=== PATIENT | female | born 1980 | race Caucasian/White ===

== ENCOUNTER 2018-06-24 09:09 | Day surgery (SDC) | payer OTHER ==
[2018-06-24] MEDS ORDERED: LR 1,000 ML IV ONE (09:16)
[2018-06-24] MEDS ORDERED: PROPOFOL 200 MG/20 ML VIAL ONE (10:51)
[2018-06-24] MEDS ORDERED: fentaNYL 100 MCG/2 ML INJ ONE ×2 (10:51→12:14)
[2018-06-24] MEDS ORDERED: LIDOCAINE 2% 5 ML SDV ONE (10:52)
[2018-06-24] MEDS ORDERED: MIDAZOLAM 2 MG/2 ML VIAL IVP ONE (11:30)
--- NOTE | 2018-06-24 11:31 | PDANEPAE ---
ANE History of Present Illness hysteroscopy ANE Past Medical History - Cardiovascular History Hx Hypertension: No Hx Arrhythmias: No Hx Chest Pain: No Hx Coronary Artery / Peripheral Vascular Disease: No Hx CHF / Valvular Disease: No Hx Palpitations: Yes - Pulmonary History Hx COPD: No Hx Asthma/Reactive Airway Disease: No Hx Recent Upper Respiratory Infection: No Hx Oxygen in Use at Home: No Hx Sleep Apnea: No Sleep Apnea Screening Result - Last Documented: Negative - Neurologic History Hx Cerebrovascular Accident: No Hx Seizures: No Hx Dementia: No - Endocrine History Hx Diabetes: No - Renal History Hx Renal Disorders: No - Liver History Hx Hepatic Disorders: No - Neurological & Psychiatric Hx Hx Neurological and Psychiatric Disorders: Yes Neurological / Psychiatric History Comment: situational anxiety - Cancer History Hx Cancer: No - Congenital Disorder History Hx Congenital Disorders: No - GI History Hx Gastrointestinal Disorders: Yes Gastrointestinal History Comment: ulcerative colitis - Other Health History Other Health History: endometiosis. increased bleeding with colitis - Chronic Pain History Chronic Pain: No - Surgical History Prior Surgeries: wisdom teeth removal ANE Review of Systems Review of Systems: - Exercise capacity METS (RN): 4 METS ANE Patient History - Allergies Allergies/Adverse Reactions: No Known Allergies Allergy (Unverified 06/13/18 14:59) - Home Medications Home medications: home medication list seen and reviewed Home Medications: NK [No Known Home Meds] 06/13/18 [Last Taken Unknown] - NPO status NPO Since - Liquids (Date): 06/24/18 NPO Since - Liquids (Time): 07:00 NPO Since - Solids (Date): 06/23/18 NPO Since - Solids (Time): 20:00 - Anes Hx Anes Hx: no prior problems - Smoking Hx Smoking Status: Never smoked - Family Anes Hx Family Hx Anesthesia Complications: none ANE Labs/Vital Signs - Vital Signs Blood Pressure: 108/72 Heart Rate: 66 Respiratory Rate: 16 O2 Sat (%): 99 Height: 162.56 cm Weight: 58.967 kg ANE Physical Exam - Airway Neck exam: FROM Mallampati Score: Class 1 Mouth exam: normal dental/mouth exam - Pulmonary Pulmonary: no respiratory distress - Cardiovascular Cardiovascular: regular rate and rhythym - ASA Status ASA Status: II ANE Anesthesia Plan Anesthesia Plan: GA w LMA
--- NOTE | 2018-06-24 11:36 | POSTANESTH ---
Post Anesthetic Evaluation Cardiovascular Status: Normal, Stable Respiratory Status: Normal, Stable Level of Consciousness/Mental Status: Can Participate in Eval, Mildly Sleepy, Arousable Pain Control: Adequate, Prn Tx Ordered Nausea/Vomiting Control: Adequate, Prn Tx Ordered Complications Possibly Related to Anesthesia: None Noted
[2018-06-24] MEDS ORDERED: ONDANSETRON 4 MG/2 ML VIAL ONE (11:42)
[2018-06-24] MEDS ORDERED: DEXAMETHASONE 4 MG/ML VIAL ONE (11:42)
[2018-06-24] MEDS ORDERED: KETOROLAC 30 MG/1 ML SDV ONE (11:42)
--- NOTE | 2018-06-24 11:45 | PDGENHP ---
History and Physical - Chief Complaint postcoital bleeding and suspected endometrial polyp - History of Present Illness 37 yo with postcoital bleeding over the past 6 months and endometrial polyp found on ultrasound, approximately 1cm. Options discussed and agreed to proceed with hysteroscopy with polypectomy and endometrial sampling. History Information - Allergies/Home Medication List Allergies/Adverse Reactions: No Known Allergies Allergy (Unverified 06/13/18 14:59) Home Medications: NK [No Known Home Meds] 06/13/18 [Last Taken Unknown] I have personally reviewed and updated: family history, medical history, social history, surgical history Past Medical History: ulcerative colitis - diet managed - Surgical History Additional surgical history: none - Family History Positive for: non-pertinent - Social History Smoking Status: Never smoked Alcohol Use: Occasionally Drug Use: None Review of Systems Review of Systems: ROS: 10pt was reviewed & negative except for what was stated in HPI & below Physical Exam Physical Exam: Temp Pulse Resp BP Pulse Ox 36.8 C 66 16 108/72 99 06/24/18 09:33 06/24/18 11:31 06/24/18 11:31 06/24/18 11:31 06/24/18 11:31 Constitutional: no apparent distress, appears nourished Eyes: PERRL, anicteric sclera, EOMI Ears, Nose, Mouth, Throat: moist mucous membranes, hearing normal, ears appear normal Cardiovascular: regular rate and rhythym Respiratory: no respiratory distress, no rales or rhonchi Gastrointestinal: normoactive bowel sounds, soft, non-tender abdomen, no palpable masses Genitourinary: no bladder fullness Skin: normal color Musculoskeletal: full muscle strength Neurologic: AAOx3 Psychiatric: interacting appropriately Lymph, Heme, Immunologic: no cervical LAD Lab Data & Imaging Review EKG Interpretation: Positive for: normal sinsus rhythm Assessment & Plan Assessment: 37 yo with postcoital bleeding and suspected endometrial polyp. Written informed consent obtained. Will proceed with hysteroscopy, polypectomy and endometrial sampling. Mayr Gaytan MD, [facility]
[2018-06-24] MEDS ORDERED: ePHEDrine SULFATE 25 MG/5 ML SYR ONE (12:03)
[2018-06-24] MEDS ORDERED: HYDROmorphONE/DILAUDID 2 MG/ML INJ IVP PRN (12:24)
[2018-06-24] MEDS ORDERED: fentaNYL 100 MCG/2 ML INJ IVP PRN (12:24)
[2018-06-24] MEDS ORDERED: ACETAMINOPHEN 500 MG TAB PO PRN (12:24)
[2018-06-24] MEDS ORDERED: oxyCODONE IR 5 MG TAB PO PRN (12:24)
[2018-06-24] MEDS ORDERED: LR 500 ML IV PRN (12:24)
[2018-06-24] MEDS ORDERED: HYDROCODONE/APAP 5/325 TAB PO PRN (12:24)
[2018-06-24] MEDS ORDERED: ONDANSETRON 4 MG/2 ML VIAL IVP PRN (12:24)
[2018-06-24] MEDS ORDERED: NALOXONE HCL 0.4 MG/ML INJ IVP PRN (12:24)
[2018-06-24] MEDS ORDERED: ALBUTEROL 3 ML DEYVIAL IH PRN (12:24)
[2018-06-24] MEDS ORDERED: PROMETHAZINE HCL 25 MG/ML INJ IVP PRN (12:24)
[2018-06-24] MEDS ORDERED: METOCLOPRAMIDE 10 MG/2 ML VIAL IVP PRN (12:24)
--- NOTE | 2018-06-24 12:45 | POSTOPPROG ---
Post Op Note Date of Operation: 06/24/18 Surgeon: Mary Gaytan Anesthesiologist: Ben Haines Anesthesia: GET(General Endotracheal) Pre-op Diagnosis: postcoital bleeding, suspected endometrial polyp Post-op Diagnosis: same Indication: postcoital bleeding and suspected endometrial polyp Procedure: hysteroscopy, polypectomy, endometrial curetting Findings: uterus sounded to 7cm, anterior wall polyp Inf/Abcess present in the surg proc area at time of surgery?: No EBL: Minimal Total fluids administered: 750 Complications: none Specimen(s): endometrial polyp and curettings
[2018-06-24] MEDS ORDERED: BUPIVACAINE 0.25% 10 ML SDV ONE (12:55)
[2018-06-24] MEDS ORDERED: SILVER NITRATE APPLICATOR 1 APPL TP ONE (12:55)
[2018-06-24 13:39] VITALS: BP 110/75
--- NOTE | 2018-06-24 14:02 | GOP ---
DATE OF OPERATION: 06/24/2018 SURGEON: Mary Gaytan MD ANESTHESIA: General endotracheal. ANESTHESIOLOGIST: Ben Haines MD PREOPERATIVE DIAGNOSIS: 1. Postcoital bleeding. 2. Suspected endometrial polyp. POSTOPERATIVE DIAGNOSIS: 1. Postcoital bleeding. 2. Suspected endometrial polyp. PROCEDURE PERFORMED: 1. Hysteroscopy. 2. Polypectomy. 3. Endometrial curettings. FINDINGS: Uterus sounded to 7 cm. Normal-appearing ostia bilaterally. Normal- appearing endometrial cavity, except for an anterior wall polyp, and a fluffy endometrial lining. SPECIMENS: Endometrial polyp and endometrial curettings. ESTIMATED BLOOD LOSS: 20 mL. INDICATIONS: 37-year-old, para 3 female with persistent postcoital bleeding over the past 6 months. Ultrasound imaging suggested an endometrial polyp. DESCRIPTION OF PROCEDURE: A bedside history and physical exam was done for the patient in the preoperative area. Her ultrasound findings from the office were again reviewed. Written informed consent was obtained. The patient was taken the operating room and placed in the dorsal supine position. When general anesthesia was deemed adequate, she was placed in modified dorsal lithotomy position using the Yellofin stirrups. She was prepared and draped in the standard fashion. A time-out was performed. A speculum was inserted into vagina. A paracervical block using 0.25% Marcaine was placed. A tenaculum was placed on the anterior lip of the cervix. The uterus sounded to 7 cm. The cervix was dilated to 6 mm. The hysteroscope was inserted with the above findings. The TruClear [employer] scope was inserted with the polyp blade. The polyp blade was used to remove the entire polyp and sample the entire endometrial cavity. The hysteroscope was then removed. The tenaculum was removed from the anterior lip of the cervix. Hemostasis of the tenaculum sites was obtained with direct pressure and the application of silver nitrate. The saline hysteroscopy fluid deficit was 120 mL. The amount of saline used was 2130 mL. Sponge, lap, needle counts were correct x2. The patient was extubated in the operating room , taken to the recovery room in stable condition. TOTAL INTRAVENOUS FLUIDS ADMINISTERED: 750 mL. URINE OUTPUT: Not measured as the patient voided immediately prior to the procedure. COMPLICATIONS: None. /[id number]/MODL MTDD
== END 2018-06-24 14:13 | disposition home or self-care (01) ==
LOC: F3N 09:09 → UNDOADMOB 09:09 → FSGY 09:09 → EDSTATUS 11:30 → UNDODISOB 14:13 → FSGY 14:13
PROVIDERS: ATTEND Hospitalist
PROC: 0UDB8ZX Extraction of Endometrium, Via Natural or Artificial Opening Endoscopic, Diagnostic (ICD-10-PCS; principal; 2018-06-24 11:30)
DX: N93.0 Postcoital and contact bleeding (principal); N84.1 Polyp of cervix uteri; K51.90 Ulcerative colitis, unspecified, without complications
CPT/HCPCS: C1782; J1100; J1885; J2250; J2405; J2704; J3010